=== PATIENT | female | born 1990 | race Caucasian/White ===

== ENCOUNTER 2017-10-03 05:43 | Emergency (ER) | payer MEDICAID ==
[~2017-10-03] VITALS: Ht 165.1 cm; Wt 70.0 kg
[2017-10-03 06:06] LABS: HCG UR LOT HCG7030192
[2017-10-03 07:20] LABS: HCG UR OBC PASS
[2017-10-03 08:06] VITALS: BP 111/72
== END 2017-10-03 08:07 | disposition home or self-care (01) ==
LOC: ED 06:08
DX: N30.00 Acute cystitis without hematuria (principal)
CPT/HCPCS: 81001; 81025; 87086; 87147; 99284

== ENCOUNTER 2017-12-26 03:31 | Emergency (ER) | payer MEDICAID ==
[~2017-12-26] VITALS: Ht 167.6 cm; Wt 78.1 kg
[2017-12-26 03:40] VITALS: BP 121/74
[2017-12-26 04:01] LABS: HCG UR SG 1.024 (1.003-1.030)
[2017-12-26 04:06] LABS: CULTURE INDICATED? YES; MICROSCOPIC INDICATED
[2017-12-26] MEDS ORDERED: PHENAZOPYRIDINE 200 MG TABLET PO STA (04:21)
[2017-12-26] MEDS ORDERED: PHENAZOPYRIDINE 200 MG TABLET ONE (04:23)
[2017-12-26] MEDS ORDERED: CEFDINIR 300 MG CAPSULE ONE (04:23)
[2017-12-26] MEDS ORDERED: CIPROFLOXACIN 500 MG TABLET ONE (04:26)
[2017-12-26] MEDS ORDERED: CIPROFLOXACIN 500 MG TABLET PO ONE (04:30)
== END 2017-12-26 04:58 | disposition home or self-care (01) ==
LOC: ED 04:40
DX: N30.01 Acute cystitis with hematuria (principal)
CPT/HCPCS: 81001; 81025; 87077; 87086; 87186; 99284